=== PATIENT | female | born 1995 | race Two or more races ===

== ENCOUNTER → 2024-06-25 13:42 | Outpatient (REF) | payer OTHER, SELFPAY | LOC: PNTC 13:42 | PROVIDERS: ATTENDING PHYSICIAN Obstetrics & Gynecology | DX: Z34.82 Encounter for supervision of other normal pregnancy, second trimester (principal); Z36.86 Encounter for antenatal screening for cervical length | CPT/HCPCS: 76805; 76817 ==

== ENCOUNTER → 2024-07-09 11:03 | Outpatient (REF) | payer OTHER, SELFPAY | LOC: PNTC 11:03 | PROVIDERS: ATTENDING PHYSICIAN Obstetrics & Gynecology | DX: O60.10X0 Preterm labor with preterm delivery, unspecified trimester, not applicable or unspecified (principal) | CPT/HCPCS: 76815; 76817 ==

== ENCOUNTER 2024-09-30 05:52 | Observation (INO) | payer OTHER, SELFPAY ==
[2024-09-30 05:54] VITALS: BMI 32.0
[2024-09-30 05:59] VITALS: BP 156/93
[2024-09-30] MEDS: CELESTONE SOLUSPAN 2 MG IM ×2 (06:58→19:30)
[2024-09-30] MEDS: PENICILLIN 110 UNITS IV (06:58)
[2024-09-30 07:10] LABS: % Basophils 0.6 % (0-2); % Eosinophils 1.6 % (0-6); % Immature Granulocytes 1.3 % (0-0.5); % Lymphocytes 30.9 % (20.5-51.1); % Monocytes 5.5 % (1.7-9.3); % Neutrophils 60.1 % (42.2-75.2); Absolute Basophils 0.1 10^3/uL (0-0.2); Absolute Eosinophils 0.2 10^3/uL (0-0.7); Absolute Immature Granulocytes 0.1 10^3/uL (0-0.05); Absolute Lymphocytes 3.3 10^3/uL (1.2-3.4); Absolute Monocytes 0.6 10^3/uL (0.1-0.6); Absolute Neutrophils 6.5 10^3/uL (1.4-6.5); Hematocrit 40.7 % (37.0-47.0); Hemoglobin 13.7 g/dL (12.0-16.0); Mean Corp Hgb Conc. 33.7 g/dL (33.0-37.0); Mean Platelet Volume 13.2 fL (7.4-10.4); Nucleated Red Blood Cells % 0 %; Platelet Count 214 10^3/uL (130-400); Red Blood Cell Count 4.73 10^6/uL (4.20-5.40); Red Cell Dist. Width 14.6 % (11.5-14.5); White Blood Cell Count 10.8 10^3/uL (4.8-10.8)
[2024-09-30] MEDS: SUBLIMAZE 100 MCG EPIDURAL (07:26)
[2024-09-30] MEDS: FENTANYL/BUPIVACAINE 100 EPIDURAL (07:26)
[2024-09-30] MEDS: LR 1000 IV ×2 (08:04→15:29)
[2024-09-30 08:08] LABS: ALT (SGPT) 13 U/L (0-35); AST (SGOT) 19 U/L (14-36); Albumin 3.8 g/dl (3.5-5.0); Alkaline Phosphatase 156 U/L (38-126); Blood Urea Nitrogen 11 mg/dl (7-17); Calcium 9.8 mg/dl (8.4-10.2); Carbon Dioxide 21 mmol/L (22-30); Chloride 109 mmol/L (98-107); Estimated Creatinine Clearance > 125 ml/min; Glucose 82 mg/dl (70-99); Potassium 5.1 mmol/L (3.5-5.1); Sodium 138 mmol/L (135-145); Total Bilirubin 0.3 mg/dl (0.2-1.3); Total Protein 7.2 g/dl (6.3-8.2); eGFR > 60.00
[2024-09-30 08:16] LABS: Urine Albumin 3+ (Neg - Trace); Urine Bilirubin Negative (Negative); Urine Character Clear (Clear); Urine Color Yellow; Urine Glucose Negative (Negative); Urine Ketone Negative (Negative); Urine Leukocyte 1+ (Negative); Urine Nitrite Negative (Negative); Urine Occult Blood 4+ (Negative); Urine Urobilinogen Negative (Neg - 1+)
[2024-09-30 08:33] LABS: Protein/creatinine Ratio 1.9; Urine Protein 97 mg/dl
[2024-09-30 08:40] LABS: Urine Amorphous Seen; Urine Mucus Few
[2024-09-30 08:42] LABS: Urine Granular Cast 0-2 /LPF (0)
--- NOTE | 2024-09-30 10:17 | CON.NEO ---
Consultation
-
Date/Time Consultation Requested: 09/30 0800
Date/Time Consultation Performed: 09/30 1015 am
Requesting Provider: Dr Anderson
Performing Provider: Dr. peraza
Reason for Consultation: prematurity 36 06/21
Consultation - Neonatology
Maternal Labs
Blood Type: A Positive
Antibody Screen: Negative
RPR: Nonreactive
Rubella: Immune
Hep B S Ag: Negative
Hep C: Negative
HIV: Nonreactive
Group B Strep: Unknown
Chlamydia/GC: Negative
Consult
Points discussed at consult:
mom is 31 year old with h/o delivery at 35 wks 2 years back . came in labor membranes intact. Has received one dose of Beta and getting GBS prophylaxis with PCN
- Management at delivery including the possibility of CPAP/intubation/surfactant discussed
- Respiratory: RDS possibility with possibility of worsening for 24-48 hrs, management including CPAP/surfactant/ventilator support may be required
- Nutrition: Hypoglycemia, need for IV fluids, gradual feed advance, Gavage feeding, importance of colostrum feeding, initiation of expression of colostrum within 3-4 hours, availability of donor milk, safety fo donor milk etc. were discussed.
Possibility of gavage feeds
-- Jaundice possibility and need for phototherapy discussed
- Family Centered Care: Discussed FCC with emphasis on parental participation during sign off and during management rounds and is encouraged. Availability of yana eyes camera also discussed
- possibilty of rooming in
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
Mom was given the opportunity to ask questions throughout and open invitation to call if any questions come as they absorb all the information given so far.
Mom desires circ PTD
Face to Face Time
Total Hgbd-hh-Rnbt Time (in Minutes): 30
[2024-09-30] MEDS: PENICILLIN 55 UNITS IV ×2 (11:27→15:29)
== END 2024-09-30 20:30 | disposition home or self-care (01) ==
LOC: LDRP 05:52
PROVIDERS: Obstetrics & Gynecology; ADMITTING PHYSICIAN Obstetrics & Gynecology; OTHER PHYSICIAN Pediatrics
DX: O47.03 False labor before 37 completed weeks of gestation, third trimester (principal); O99.283 Endocrine, nutritional and metabolic diseases complicating pregnancy, third trimester; O36.8330 Maternal care for abnormalities of the fetal heart rate or rhythm, third trimester, not applicable or unspecified; E28.2 Polycystic ovarian syndrome; Z3A.36 36 weeks gestation of pregnancy; O09.213 Supervision of pregnancy with history of pre-term labor, third trimester; Z82.3 Family history of stroke; Z83.3 Family history of diabetes mellitus; Z82.49 Family history of ischemic heart disease and other diseases of the circulatory system; Z84.1 Family history of disorders of kidney and ureter
CPT/HCPCS: 76815; 80053; 81003; 81015; 82570; 84156; 85025; 86850; 86900; 86901; 87070; G0378

== ENCOUNTER 2024-09-30 22:14 | Inpatient (IN) | payer OTHER, SELFPAY ==
[2024-09-30 22:51] VITALS: BP 142/82; BMI 32.0
[2024-09-30] MEDS: LR 1000 IV (23:31)
[2024-09-30] MEDS: PENICILLIN 110 UNITS IV (23:32)
[2024-09-30] MEDS: PITOCIN 30 UNITS/NSS 500 ML IV (23:45)
[2024-09-30] MEDS: XYLOCAINE-MPF 1% VIAL 30 ML INFIL (23:48)
[2024-10-01] MEDS: MOTRIN 600 MG PO ×3 (00:16→20:36)
[2024-10-01] MEDS: TYLENOL 650 MG PO (02:38)
[2024-10-01 06:30] LABS: Hematocrit 38.2 % (37.0-47.0)
[2024-10-01] MEDS: PRENATAL PLUS 1 TABLET PO (08:25)
[2024-10-01] MEDS: SENOKOT-S 1 TABLET PO (08:25)
[2024-10-01 13:34] LABS: Syphilis/T. pallidum Ab Reflex Negative (Negative)
[2024-10-02] MEDS: PRENATAL PLUS 1 TABLET PO (09:02)
== END 2024-10-02 11:15 | disposition home or self-care (01) | DRG 807 ==
LOC: LDRP 22:14
PROVIDERS: ADMITTING PHYSICIAN Obstetrics & Gynecology
PROC: 0HQ9XZZ Repair Perineum Skin, External Approach (ICD-10-PCS; 2024-10-01)
PROC: 10E0XZZ Delivery of Products of Conception, External Approach (ICD-10-PCS; 2024-10-01)
DX: O70.0 First degree perineal laceration during delivery (principal); Z37.0 Single live birth; Z3A.36 36 weeks gestation of pregnancy; O69.81X0 Labor and delivery complicated by cord around neck, without compression, not applicable or unspecified
CPT/HCPCS: 88307; 76815; 80053; 81003; 81015; 82570; 84156; 85014; 85018; 85025; 86780; 86850; 86900; 86901; 87070; G0378